=== PATIENT | male | born 1960 ===

== ENCOUNTER 2017-05-30 10:37 | Emergency (ER) | payer MEDICAID ==
[~2017-05-30] VITALS: Ht 172.7 cm; Wt 95.2 kg
[2017-05-30 10:42] VITALS: Ht 172.7 cm; Wt 95.2 kg
[2017-05-30 12:10] LABS: BASOPHIL % 0.5 % (0-2); PLATELET COUNT 306 x10^3mcL (130-400); RED CELL DISTRIBUTION WIDTH 12.9 % (11.5-14.5)
[2017-05-30 12:21] LABS: CALCIUM 9.5 mg/dL (8.5-10.1); CHLORIDE SERUM 97 mmol/L (98-107); CREATININE SERUM 0.8 mg/dL (0.7-1.3); GFR1 > 60 mL/min; GLUCOSE SERUM 100 mg/dL (74-106); POTASSIUM SERUM 3.4 mmol/L (3.5-5.1); SODIUM SERUM 139 mmol/L (136-145)
[2017-05-30 12:31] LABS: AMPHETAMINE QUAL UR NONE DETECTED (NEG <=1000)
[2017-05-30 12:33] LABS: ALBUMIN 4.2 g/dL (3.4-5.0); ALKALINE PHOSPHATASE 120 U/L (46-116); ALT/SGPT 40 U/L (16-63); AST/SGOT 21 U/L (15-37); BILIRUBIN TOTAL 0.5 mg/dL (0.20-1.00); T4(THYROXINE) 9.6 ug/dL (4.7-13.3)
[2017-05-30 12:44] LABS: TOTAL PROTEIN, SERUM 8.4 g/dL (6.4-8.2)
[2017-05-30 16:02] VITALS: BP 122/89
== END 2017-05-30 16:02 | disposition home or self-care (01) ==
LOC: ED 10:37
PROVIDERS: Emergency Medicine
DX: F32.9 Major depressive disorder, single episode, unspecified (principal); J98.01 Acute bronchospasm; L30.9 Dermatitis, unspecified
CPT/HCPCS: 36415; 83880; G0480; J7512; J7613; Q0092

== ENCOUNTER 2019-11-04 04:24 | Emergency (ER) | payer OTHER ==
[~2019-11-04] VITALS: Ht 172.7 cm; Wt 70.3 kg
[2019-11-04 04:27] VITALS: Ht 172.7 cm; Wt 70.3 kg
[2019-11-04 05:45] VITALS: BP 102/75
== END 2019-11-04 05:45 | disposition home or self-care (01) ==
LOC: ED 04:24
DX: R53.1 Weakness (principal); R11.2 Nausea with vomiting, unspecified; Z59.0 Homelessness